=== PATIENT | female | born 1985 | race African-American/Black ===

== ENCOUNTER 2017-04-01 21:06 | Emergency (ER) | payer OTHER ==
[~2017-04-01] VITALS: Ht 165.1 cm; Wt 117.9 kg
[2017-04-01] MEDS ORDERED: PRENATABS FA T1 EACH (21:23)
[2017-04-02] MEDS ORDERED: PEPCID40 MG PO (04:03)
[2017-04-02] MEDS ORDERED: ZOFRAN4 MG PO (04:03)
== END 2017-04-02 04:00 | disposition home or self-care (01) ==
LOC: ER 21:06
DX: O26.892 Other specified pregnancy related conditions, second trimester (principal); K52.9 Noninfective gastroenteritis and colitis, unspecified; Z34.02 Encounter for supervision of normal first pregnancy, second trimester

== ENCOUNTER 2017-06-21 14:15 | Inpatient (IN) | payer OTHER ==
[~2017-06-21] VITALS: Ht 165.1 cm; Wt 118.8 kg
[~2017-06-21 14:15] MED LIST: PEPCID40 MG PO; PRENATABS FA T1 EACH; ZOFRAN4 MG PO
== END 2017-06-30 11:55 | DRG 775 ==
LOC: OB/GYN 06-27 06:06 → LDR 06-27 06:06 → OB/GYN 06-28 10:50
PROC: 4A1HXCZ Monitoring of Products of Conception, Cardiac Rate, External Approach (ICD-10-PCS; 2017-06-27)
PROC: 0UQGXZZ Repair Vagina, External Approach (ICD-10-PCS; principal; 2017-06-28)
PROC: 10E0XZZ Delivery of Products of Conception, External Approach (ICD-10-PCS; 2017-06-28)
DX: O71.4 Obstetric high vaginal laceration alone (principal); Z3A.38 38 weeks gestation of pregnancy; Z37.0 Single live birth

== ENCOUNTER 2017-06-24 07:41 | Outpatient (CLI) | payer OTHER | END 2017-06-24 08:32 | disposition home or self-care (01) | LOC: NST 07:41 | DX: Z34.83 Encounter for supervision of other normal pregnancy, third trimester (principal) ==

== ENCOUNTER 2017-06-26 08:27 | Outpatient (CLI) | payer OTHER | END 2017-06-26 10:21 | disposition home or self-care (01) | LOC: NST 08:27 | DX: Z34.83 Encounter for supervision of other normal pregnancy, third trimester (principal) ==

== ENCOUNTER 2019-06-01 15:30 | Inpatient (IN) | payer OTHER ==
[~2019-06-01] VITALS: Ht 165.1 cm; Wt 118.4 kg
[2019-06-13] MEDS ORDERED: IRON325 MG PO (07:45)
== END 2019-06-15 11:50 | disposition home or self-care (01) | DRG 807 ==
LOC: LDR 06-13 06:19 → OB/GYN 06-13 13:23
PROVIDERS: ADMIT Obstetrics & Gynecology
PROC: 10E0XZZ Delivery of Products of Conception, External Approach (ICD-10-PCS; principal; 2019-06-13)
PROC: 10907ZC Drainage of Amniotic Fluid, Therapeutic from Products of Conception, Via Natural or Artificial Opening (ICD-10-PCS; 2019-06-13)
PROC: 3E033VJ Introduction of Other Hormone into Peripheral Vein, Percutaneous Approach (ICD-10-PCS; 2019-06-13)
PROC: 4A1HXCZ Monitoring of Products of Conception, Cardiac Rate, External Approach (ICD-10-PCS; 2019-06-13)
DX: O80 Encounter for full-term uncomplicated delivery (principal); Z37.0 Single live birth; Z3A.38 38 weeks gestation of pregnancy

== ENCOUNTER 2019-06-08 11:28 | Outpatient (CLI) | payer OTHER | END 2019-06-08 12:21 | disposition home or self-care (01) | LOC: NST 11:28 | DX: Z34.83 Encounter for supervision of other normal pregnancy, third trimester (principal) ==

== ENCOUNTER 2019-12-12 06:33 | Day surgery (SDC) | payer OTHER ==
[~2019-12-12 06:33] MED LIST changes: +IRON325 MG PO
== END 2019-12-12 14:45 | disposition home or self-care (01) ==
LOC: CIR.AMB 06:33
PROVIDERS: ATTEND Obstetrics & Gynecology
DX: Z30.2 Encounter for sterilization (principal); Z20.828 Contact with and (suspected) exposure to other viral communicable diseases

== ENCOUNTER 2023-10-07 16:37 | Emergency (ER) | payer OTHER ==
[~2023-10-07] VITALS: Ht 165.1 cm; Wt 125.6 kg
[2023-10-07] MEDS ORDERED: KETOROLAC TROMETHAMINE 60 MG VIAL IM ONE ×2 (17:30→17:32)
[2023-10-07] MEDS ORDERED: ONDANSETRON HCL 2 MG/ML VIAL ONE (17:32)
[2023-10-07] MEDS ORDERED: BARIUM SULFATE 450 ML ORAL.SUSP PO ONE (17:33)
[2023-10-07] MEDS ORDERED: ONDANSETRON HCL 2 MG/ML VIAL IV ONE (17:45)
[2023-10-07 17:51] LABS: HEMATOCRIT 38.7 % (36.0-45.00); HEMOGLOBIN 12.7 g/dL (12.0-15.00); MEAN CELL VOLUME 78.4 fL (80.00-100.00); MEAN CORPUSCULAR HEMOGLOBIN 25.7 pg (27.00-32.0); MEAN CORPUSCULAR HGB CONC 32.8 g/dl (32.0-36.0); PLATELET COUNT 248 K/uL (150-450); RED BLOOD COUNT 4.94 M/uL (4.00-6.00)
[2023-10-07 17:52] LABS: URINE APPEARANCE Turbid; URINE BILIRRUBIN Negative (NEGATIVE); URINE BLOOD Large; URINE COLOR Yellow; URINE GLUCOSE Negative (NEGATIVE); URINE LEUKOCYTE Trace; URINE NITRATE Negative; URINE PROTEIN Negative (NEGATIVE); URINE UROBILINOGEN 0.2 E.U./dl
[2023-10-07 17:53] LABS: RED CELL DISTRIBUTION WIDTH 16.2 % (11.5-14.5)
[2023-10-07 17:57] LABS: URINE BACTERIA 2047.3 uL (0.0-1933); URINE EPITHELIAL CELLS 48.9 uL (0.0-38.8); URINE RBC 1078.3 uL (0.0-20.8); URINE WBC 38.9 uL (0.0-23.2)
[2023-10-07 18:25] LABS: ALBUMIN 3.7 gm/dL (3.4-5.0); BILIRUBIN TOTAL 0.23 mg/dL (0.3-1.2); CALCIUM 9.3 mg/dL (8.5-10.1); CREATININE SERUM 0.94 mg/dL (0.55-1.02); GLOBULINA 4.6 G/DL (2.4-3.5); POTASSIUM 3.92 mEq/L (3.5-5.1); TOTAL PROTEIN 8.3 gm/dL (6.4-8.2)
== END 2023-10-08 03:01 | disposition home or self-care (01) ==
LOC: ER 16:38
PROVIDERS: Emergency Medicine
DX: R10.84 Generalized abdominal pain (principal); K29.70 Gastritis, unspecified, without bleeding; N20.0 Calculus of kidney